=== PATIENT | female | born 1995 | race Two or more races ===

== ENCOUNTER 2023-08-03 06:02 | Emergency (ER) | payer OTHER ==
[~2023-08-03] VITALS: Ht 167.6 cm; Wt 56.7 kg
== END 2023-08-03 12:23 | disposition home or self-care (01) ==
LOC: ER 06:03
DX: S92.812A Other fracture of left foot, initial encounter for closed fracture (principal); W19.XXXA Unspecified fall, initial encounter; Y93.E1 Activity, personal bathing and showering; Y92.89 Other specified places as the place of occurrence of the external cause; Y99.8 Other external cause status